=== PATIENT | female | born 1975 | race American Indian/Alaskan Native ===

== ENCOUNTER 2016-11-08 18:23 | Emergency (ER) | payer MEDICAID ==
--- NOTE | 2016-11-08 18:37 | Emergency Department Report ---
Entered by JOVI RO, acting as scribe for SETH DAO NP. Chief Complaint: Abdominal Pain Stated Complaint: POSS MISCARRIAGE Time Seen by Provider: 11/08/16 18:30 - HPI History of Present Illness: 41 y/o female presents with abd cramping. PT states she is 6 weeks and has not seen program dir - ROS Review of Systems: +abd pain +vag bleeding - Exam Physical Exam: abd: LLQ and LRQ abd TTP, no rebound no guarding abd is soft MSE screening note: Focused history and physical exam performed. Due to findings the following was ordered: labs, us ED Disposition for MSE Condition: Stable This documentation as recorded by the scribe,JOVI RO,accurately reflects the service I personally performed and the decisions made by ,SETH DAO , [employer].
[2016-11-08 19:09] LABS: Basophils % (Auto) 2.2 % (0.0-1.8); Eosinophils % (Auto) 0.7 % (0.0-4.3); Hematocrit 34.3 % (30.3-42.9); Hemoglobin 11.7 gm/dl (10.1-14.3); Mean Corpuscular HGB Conc 34 % (30-34); Mean Corpuscular Hemoglobin 32 pg (28-32); Mean Corpuscular Volume 93 fl (79-97); Platelet Count 216 K/mm3 (140-440); Red Blood Count 3.67 M/mm3 (3.65-5.03); Red Cell Distribution Width 12.3 % (13.2-15.2); White Blood Count 7.7 K/mm3 (4.5-11.0)
[2016-11-08 19:18] LABS: Albumin 3.7 g/dL (3.9-5); Blood Urea Nitrogen 9 mg/dL (7-17); Calcium 9.4 mg/dL (8.4-10.2); Carbon Dioxide 20 mmol/L (22-30); Chloride 102.3 mmol/L (98-107); Glucose 82 mg/dL (65-100); Sodium 138 mmol/L (137-145); Total Protein 7.3 g/dL (6.3-8.2)
[2016-11-08 19:21] LABS: Alanine Aminotransferase 14 units/L (7-56); Alkaline Phosphatase 29 units/L (35-129); Anion Gap 21 mmol/L; Potassium 5.4 mmol/L (3.6-5.0)
--- NOTE | 2016-11-08 21:34 | Ultrasound Report ---
FINAL REPORT EXAM: US OB \T\lt; = 14 WEEKS FETUS HISTORY: pain, COMPARISONS: Transvaginal ultrasound of the same date. FINDINGS: Transabdominal grayscale, color and M-mode first-trimester ultrasound Anteverted uterus with 8 millimeter gestational sac and small perigestational hemorrhage. Evaluation of first-trimester is more detailed on transvaginal ultrasound of the same date. The right ovary is not well visualized on transabdominal examination. The left ovary measures approximately 2.6 x 2.7 x 3.1 cm and contains a functional cyst measuring up to 16 millimeters. No peripheral hyperemia identified on color Doppler. IMPRESSION: Gestational sac is present within the endometrium. Single living intrauterine is better evaluated on transvaginal ultrasound of the same date.
[2016-11-08 21:38] LABS: Bilirubin,Urine NEG (Negative); Blood,Urine SM (Negative); Ketones,Urine 20 mg/dL (Negative); Leukocyte Esterase,Urine NEG (Negative); Mucus,Urine FEW /HPF; Nitrite,Urine NEG (Negative); Protein,Urine <15 mg/dL mg/dL (Negative); Urobilinogen,Urine < 2.0 mg/dL (<2.0); WBC,Urine < 1.0 /HPF (0.0-6.0)
--- NOTE | 2016-11-08 21:38 | Ultrasound Report ---
FINAL REPORT EXAM: US OB TRANSVAGINAL HISTORY: pain, COMPARISONS: None. FINDINGS: Transvaginal grayscale, color Doppler and M-mode first-trimester ultrasound There is a single living intrauterine with recorded cardiac activity of 104 beats per minute and crown-rump length of approximately 2-3 millimeters. Estimated gestational age is 5 weeks 6 days, which corresponds to delivery date of 07/05/2017. A small perigestational hemorrhage involves less than 50 percent of the gestational sac surface area. No significant free fluid in the pelvis. The left ovary measures 2.9 x 2 x 2.7 cm and contains a thick walled cystic structure measuring up to 19 millimeters in greatest dimension. No peripheral hyperemia is demonstrated on color Doppler evaluation. The right ovary is not well visualized. IMPRESSION: Single living intrauterine with crown-rump length of 2-3 millimeters corresponding to estimated gestational age of 5 weeks 6 days. Consider follow-up first-trimester ultrasound in 2 weeks for more accurate dating. Small perigestational hemorrhage involving less than 50 percent of the gestational sac surface area. Functional (corpus luteal) cyst in the left ovary measuring up to 19 millimeters is favored over heterotopic . In the absence of additional symptoms, the left ovarian finding can be followed in 2 weeks as well.
--- NOTE | 2016-11-09 03:09 | Emergency Department Report ---
HPI - General Chief Complaint: Abdominal Pain Time Seen by Provider: 11/08/16 18:30 - HPI HPI: Room 23 The patient is a 41-year-old female presenting with a chief complaint pelvic cramping and vaginal bleeding. Patient states she took a home test which was positive approximately 2 weeks ago. The patient states 6 days ago she developed white vaginal bleeding which persisted for a few days and then stop. The patient states 2 days ago she passed a small amount of clots vaginally but then it stopped. The patient states she was doing well until today she developed some pelvic cramping and vaginal spotting began. The patient states she has not seen an PROPOSITION [employer]ER for this yet Location: Pelvis Duration: [see above] Quality: Cramping Severity: Moderate Modifying factors: [see above] Context: [see above] Mode of transportation: Unknown ED Past Medical Hx - Past Medical History Previous Medical History?: No - Surgical History Past Surgical History?: No - Family History Family history: no significant - Social History Smoking Status: Never Smoker Substance Use Type: None (denies illicit drug use), Alcohol (socially) - Medications Home Medications: Home Medications Medication Instructions Recorded Confirmed Last Taken Type metroNIDAZOLE [Flagyl] 500 mg PO Q12HR #14 tab 03/01/15 Unknown Rx ED Review of Systems ROS: Stated complaint: POSS MISCARRIAGE Other details as noted in HPI Comment: All other systems reviewed and negative Constitutional: denies: chills, fever Eyes: denies: eye pain, eye discharge, vision change ENT: denies: ear pain, throat pain Respiratory: denies: cough, shortness of breath, wheezing Cardiovascular: denies: chest pain, palpitations Endocrine: no symptoms reported Gastrointestinal: abdominal pain Genitourinary: abnormal menses Musculoskeletal: denies: back pain, joint swelling, arthralgia Skin: denies: rash, lesions Neurological: denies: headache, weakness, paresthesias Psychiatric: denies: anxiety, depression Hematological/Lymphatic: denies: easy bleeding, easy bruising Physical Exam - Physical Exam Vital Signs: Vital Signs 11/08/16 11/08/16 11/09/16 18:32 23:14 02:09 Temperature 98.8 F 98.1 F Pulse Rate 110 H 83 90 Respiratory 20 18 15 Rate Blood Pressure 156/102 152/107 Blood Pressure [Right] O2 Sat by Pulse 100 100 100 Oximetry 11/09/16 11/09/16 02:10 02:39 Temperature 98.7 F Pulse Rate 80 80 Respiratory 14 14 Rate Blood Pressure Blood Pressure 137/97 [Right] O2 Sat by Pulse 100 100 Oximetry Physical Exam: GENERAL: The patient is well-developed well-nourished female sitting on stretcher not appearing to be in acute distress. [] HEENT: Normocephalic. Atraumatic. Extraocular motions are intact. Patient has moist mucous membranes. NECK: Supple. Trachea midline CHEST/LUNGS: Clear to auscultation. There is no respiratory distress noted. HEART/CARDIOVASCULAR: Regular. There is no tachycardia. There is no gallop rub or murmur. ABDOMEN: Abdomen is soft, nontender. Patient has normal bowel sounds. There is no abdominal distention. SKIN: There is no rash. There is no edema. There is no diaphoresis. NEURO: The patient is awake, alert, and oriented. The patient is cooperative. The patient has normal speech MUSCULOSKELETAL: There is no evidence of acute injury. ED Course Vital Signs 11/08/16 11/08/16 11/09/16 18:32 23:14 02:09 Temperature 98.8 F 98.1 F Pulse Rate 110 H 83 90 Respiratory 20 18 15 Rate Blood Pressure 156/102 152/107 Blood Pressure [Right] O2 Sat by Pulse 100 100 100 Oximetry 11/09/16 11/09/16 02:10 02:39 Temperature 98.7 F Pulse Rate 80 80 Respiratory 14 14 Rate Blood Pressure Blood Pressure 137/97 [Right] O2 Sat by Pulse 100 100 Oximetry ED Medical Decision Making - Lab Data Result diagrams: 11/08/16 18:43 11/08/16 18:43 Laboratory Tests 11/08/16 11/08/16 11/08/16 18:43 18:43 18:43 WBC 7.7 RBC 3.67 Hgb 11.7 Hct 34.3 MCV 93 MCH 32 MCHC 34 RDW 12.3 L Plt Count 216 Lymph % (Auto) 40.9 H Powell % (Auto) 7.0 Eos % (Auto) 0.7 Baso % (Auto) 2.2 H Lymph # 3.2 Powell # 0.5 Eos # 0.1 Baso # 0.2 H Seg Neutrophils % 49.2 Seg Neutrophils # 3.8 Sodium 138 Potassium 5.4 H Chloride 102.3 Carbon Dioxide 20 L Anion Gap 21 BUN 9 Creatinine 0.6 L Estimated GFR > 60 BUN/Creatinine Ratio 15.00 Glucose 82 Calcium 9.4 Total Bilirubin 0.20 AST 28 ALT 14 Alkaline Phosphatase 29 L Total Protein 7.3 Albumin 3.7 L Albumin/Globulin Ratio 1.0 HCG, Quant 4718 H Urine Color Urine Turbidity Urine pH Ur Specific Dubois Urine Protein Urine Glucose (UA) Urine Ketones Urine Blood Urine Nitrite Urine Bilirubin Urine Urobilinogen Ur Leukocyte Esterase Urine WBC (Auto) Urine RBC (Auto) U Epithel Cells (Auto) Urine Mucus Blood Type 11/08/16 11/08/16 18:43 19:11 WBC RBC Hgb Hct MCV MCH MCHC RDW Plt Count Lymph % (Auto) Powell % (Auto) Eos % (Auto) Baso % (Auto) Lymph # Powell # Eos # Baso # Seg Neutrophils % Seg Neutrophils # Sodium Potassium Chloride Carbon Dioxide Anion Gap BUN Creatinine Estimated GFR BUN/Creatinine Ratio Glucose Calcium Total Bilirubin AST ALT Alkaline Phosphatase Total Protein Albumin Albumin/Globulin Ratio HCG, Quant Urine Color Yellow Urine Turbidity Clear Urine pH 6.0 Ur Specific Dubois 1.008 Urine Protein <15 mg/dl Urine Glucose (UA) Neg Urine Ketones 20 Urine Blood Sm Urine Nitrite Neg Urine Bilirubin Neg Urine Urobilinogen < 2.0 Ur Leukocyte Esterase Neg Urine WBC (Auto) < 1.0 Urine RBC (Auto) 1.0 U Epithel Cells (Auto) 2.0 Urine Mucus Few Blood Type O POSITIVE Hyperkalemia believed to be secondary to homolysis patient has no discernible etiology for true hyperkalemia - Radiology Data Radiology results: report reviewed (pelvic ultrasound), image reviewed (pelvic ultrasound) Pelvic ultrasound (read by radiologist)- single living intrauterine with crown-rump length of 2-3 mm corresponded to an estimated gestational age of 5 weeks 6 days. Small vishal-gestational hemorrhage involving less than 50% of the gestational sac surface area. Functional corpus luteal cyst on the left ovary measuring up to 90 mm is favored over heterotopic . The absence of additional symptoms, the left ovarian finding can be followed in 2 weeks as well. - Medical Decision Making Patient was advised to undergo pelvic rest and bed rest until seen by an [employer]ER. - Differential Diagnosis ectopic , threatened , spontaneous , inevitable ab Critical care attestation.: If time is entered above; I have spent that time in minutes in the direct care of this critically ill patient, excluding procedure time. ED Disposition Clinical Impression: Threatened Disposition: [id number] TO HOME OR SELFCARE Is pt being admited?: No Does the pt Need Aspirin: No Condition: Stable Instructions: Abdominal Pain (ED), Threatened Miscarriage (ED) Additional Instructions: Return to the emergency department immediately should you develop worsening symptoms, fever, inability to tolerate food or liquid or any other concerns. Referrals: PRIMARY CARE, [Primary Care Provider] - 3-5 Days BLESSING MCCORMICK MD [Staff Physician] - [facility] (Dr. Mccormick is an [employer]ER. Follow up with him for further evaluation) Time of Disposition: 03:06
[2016-11-09 03:27] VITALS: BP 128/92
== END 2016-11-09 03:27 | disposition home or self-care (01) ==
LOC: ED 18:23
DX: O20.0 Threatened abortion (principal)
CPT/HCPCS: 36415; 76801; 76817; 80053; 81001; 84702; 85025; 86900; 86901